=== PATIENT | male | born 1960 | race Caucasian/White ===

== ENCOUNTER 2023-07-21 22:58 | Emergency (ER) | payer BC, MEDICARE ==
[~2023-07-21] VITALS: Ht 170.2 cm; Wt 81.7 kg
[2023-07-22] MEDS ORDERED: CEPH500 PO (01:25)
[2023-07-22 01:30] VITALS: BP 123/92
[2023-07-22] MEDS ORDERED: KAPSPARGO SPRIN25 MG PO (01:43)
[2023-07-22] MEDS ORDERED: Bisoprolol Fumar5 MG PO (01:43)
[2023-07-22] MEDS ORDERED: XARELTO20 M1 PO (01:43)
[2023-07-22] MEDS ORDERED: LOSARTAN POTASS25 M2 PO (01:43)
== END 2023-07-22 01:45 | disposition home or self-care (01) ==
LOC: ER 22:58
DX: T83.098A Other mechanical complication of other urinary catheter, initial encounter (principal); R21 Rash and other nonspecific skin eruption; Z79.01 Long term (current) use of anticoagulants; Z79.899 Other long term (current) drug therapy
CPT/HCPCS: 51798; 99283; A9270